=== PATIENT | female | born 1965 | race American Indian/Alaskan Native ===

== ENCOUNTER 2016-06-18 08:15 | Emergency (ER) | payer SELFPAY ==
--- NOTE | 2016-06-18 12:07 | Emergency Department Report ---
ED Lower Extremity HPI - General Chief Complaint: Extremity Injury, Lower Stated Complaint: LT TOE PAIN Time Seen by Provider: 06/18/16 11:47 Source: patient Mode of arrival: Ambulatory Limitations: No Limitations - History of Present Illness Initial Comments: 50-year-old female past medical history gastric ulcer, GERD, bunionectomy presents with complaint of pain to the left third and fifth toes status post accidentally kicking a door frame with foot while mopping. Patient states this happened 2 days ago, states that her toes are very painful. States she previously had bunion correction surgery. Denies any lacerations, able to walk on the foot but uncomfortable due to toe pain denies any other injuries. Patient states she has multiple adequate allergies MD Complaint: ankle injury, foot injury Onset/Timin -: days(s) Injury: Toes: Left Type of Injury: blunt Place: home Severity: moderate Severity scale (0 -10): 6 Improves With: immobilization Worsens With: movement Context: direct blow - Related Data Allergies Allergy/AdvReac Type Severity Reaction Status Date / Time ibuprofen Allergy Bleeding Verified 06/18/16 08:35 acetaminophen [From Vicodin] AdvReac Vomiting Verified 06/18/16 08:34 hydrocodone bitartrate AdvReac Vomiting Verified 06/18/16 08:34 [From Vicodin] ED Review of Systems ROS: Stated complaint: LT TOE PAIN Other details as noted in HPI ED Past Medical Hx - Past Medical History Previous Medical History?: No - Surgical History Past Surgical History?: Yes Additional Surgical History: bilateral feet, abdominal hernias - Social History Smoking Status: Current Some Day Smoker Substance Use Type: Alcohol ED Physical Exam - General Limitations: No Limitations General appearance: alert, in no apparent distress - Head Head exam: Present: atraumatic, normocephalic - Eye Eye exam: Present: normal appearance, PERRL, EOMI - ENT ENT exam: Present: mucous membranes moist - Neck Neck exam: Present: normal inspection - Respiratory Respiratory exam: Present: normal lung sounds bilaterally. Absent: respiratory distress - Cardiovascular Cardiovascular Exam: Present: regular rate, normal rhythm. Absent: systolic murmur, diastolic murmur, rubs, gallop - GI/Abdominal GI/Abdominal exam: Present: soft, normal bowel sounds - Extremities Exam Extremities exam: Present: normal inspection - Expanded Lower Extremity Exam Left Hip exam: Present: normal inspection, full ROM Upper Leg exam: Present: normal inspection, full ROM Knee exam: Present: normal inspection, full ROM Lower Leg exam: Present: normal inspection, full ROM Ankle exam: Present: normal inspection, full ROM Foot/Toe exam: Present: tenderness (patient has some tenderness at tip of third and fifth digits no pain and metatarsal region) - Back Exam Back exam: Present: normal inspection - Neurological Exam Neurological exam: Present: alert, oriented X3 - Psychiatric Psychiatric exam: Present: normal affect, normal mood - Skin Skin exam: Present: warm, dry, intact, normal color. Absent: rash ED Course Vital Signs 06/18/16 08:27 Temperature 98.5 F Pulse Rate 67 Respiratory 18 Rate Blood Pressure 122/80 O2 Sat by Pulse 100 Oximetry ED Lower Extremity MDM - Medical Decision Making A/P: toe contusion 1-orthopedic shoe, podiatry follow-up 2-x-ray reviewed with Dr. Faustin no signs of acute fracture 3- Tylenol when necessary for pain, RICE Critical care attestation.: If time is entered above; I have spent that time in minutes in the direct care of this critically ill patient, excluding procedure time. ED Disposition Clinical Impression: Contusion, toes Qualifiers: Encounter type: sequela Toe: lesser toe Damage to nail status: without damage Laterality: left Qualified Code(s): S90.122S - Contusion of left lesser toe(s) without damage to nail, sequela Disposition: DISCHARGED TO HOME OR SELFCARE Is pt being admited?: No Does the pt Need Aspirin: No Condition: Stable Instructions: Foot Contusion (ED), RICE Therapy (ED) Referrals: NICO GUERRERO DPM [Staff Physician] - 3-5 Days Forms: Work/School Release Form(ED) Time of Disposition: 13:05
[2016-06-18 13:28] VITALS: BP 120/80
--- NOTE | 2016-06-19 08:47 | XRay Report ---
Left third fourth and fifth toes. Findings: There no acute fractures or dislocations. No fracture deformity on the distal fifth metatarsal is seen. A single orthopedic screw is seen at the head of the first metatarsal. Impression: No acute findings.
== END 2016-06-18 13:24 | disposition home or self-care (01) ==
LOC: ED 08:15
DX: S90.122S Contusion of left lesser toe(s) without damage to nail, sequela (principal); F17.200 Nicotine dependence, unspecified, uncomplicated; K21.9 Gastro-esophageal reflux disease without esophagitis
CPT/HCPCS: 99283

== ENCOUNTER 2016-09-23 18:10 | Emergency (ER) | payer SELFPAY ==
[2016-09-23 19:06] LABS: Basophils % (Auto) 1.2 % (0.0-1.8); Eosinophils % (Auto) 4.9 % (0.0-4.3); Hematocrit 38.4 % (30.3-42.9); Hemoglobin 12.8 gm/dl (10.1-14.3); Mean Corpuscular HGB Conc 33 % (30-34); Mean Corpuscular Hemoglobin 31 pg (28-32); Mean Corpuscular Volume 93 fl (79-97); Platelet Count 305 K/mm3 (140-440); Red Blood Count 4.13 M/mm3 (3.65-5.03); Red Cell Distribution Width 13.8 % (13.2-15.2)
--- NOTE | 2016-09-23 19:12 | XRay Report ---
FINAL REPORT EXAM: XR CHEST ROUTINE 2V HISTORY: chest pain TECHNIQUE: PA and lateral chest radiographs PRIORS: None. FINDINGS: No focal consolidations are seen in the lungs and there are no pleural effusions.The cardiomediastinal silhouette is within normal limits for size and contour. No acute osseous abnormality is identified. IMPRESSION: 1. No definite radiographic evidence of acute cardiopulmonary disease.
[2016-09-23 19:15] LABS: Anion Gap 14 mmol/L; BUN/Creatinine Ratio 5.55; Blood Urea Nitrogen 5 mg/dL (7-17); Calcium 9.5 mg/dL (8.4-10.2); Carbon Dioxide 29 mmol/L (22-30); Chloride 102.4 mmol/L (98-107); Glucose 76 mg/dL (65-100); Potassium 4.4 mmol/L (3.6-5.0); Sodium 141 mmol/L (137-145)
--- NOTE | 2016-09-24 03:38 | Emergency Department Report ---
HPI - General Chief Complaint: Chest Pain Time Seen by Provider: 09/24/16 03:20 - HPI HPI: Room 17 The patient is a 50-year-old female presenting with a chief complaint of chest pain. The patient states her symptoms began today at approximately 15:30 of left-sided chest pain that was sharp and intermittent in nature. The patient states she got short of breath diaphoresis and nausea without vomiting. Patient states she took a Ramos aspirin and it helped. Patient states her chest pain has been intermittent. Patient currently denies chest pain. Patient states she's never had a stress test or cardiac catheterization Location: Left chest Duration: Intermittent since 15:30 Quality: Sharp Severity: Currently 0/10 Modifying factors: [see above] Context: [see above] Mode of transportation: Unknown ED Past Medical Hx - Past Medical History Previous Medical History?: Yes Hx Asthma: Yes - Surgical History Past Surgical History?: Yes Additional Surgical History: bilateral feet, abdominal hernias - Family History Family history: no significant - Social History Smoking Status: Current Some Day Smoker Substance Use Type: None (denies illicit drug use), Alcohol (occasional) - Medications Home Medications: Home Medications Medication Instructions Recorded Confirmed Last Taken Type Ondansetron [Zofran Odt] 4 mg PO Q8H PRN #20 tab.rapdis 06/18/16 Unknown Rx traMADol [Ultram 50 MG tab] 50 mg PO Q6HR PRN #10 tablet 06/18/16 Unknown Rx ED Review of Systems ROS: Stated complaint: LT FOOT PAIN/LUMP RT ARM/CHEST PAIN Other details as noted in HPI Comment: All other systems reviewed and negative Constitutional: diaphoresis Eyes: denies: eye pain, eye discharge, vision change ENT: denies: ear pain, throat pain Respiratory: shortness of breath Cardiovascular: chest pain Endocrine: no symptoms reported Gastrointestinal: nausea. denies: vomiting Genitourinary: denies: urgency, dysuria, discharge Musculoskeletal: denies: back pain, joint swelling, arthralgia Skin: denies: rash, lesions Neurological: denies: headache, weakness, paresthesias Psychiatric: denies: anxiety, depression Hematological/Lymphatic: denies: easy bleeding, easy bruising Physical Exam - Physical Exam Vital Signs: Vital Signs 09/23/16 09/24/16 18:38 00:21 Temperature 98.5 F Pulse Rate 77 67 Respiratory 20 14 Rate Blood Pressure 119/85 140/98 O2 Sat by Pulse 100 100 Oximetry Physical Exam: GENERAL: The patient is well-developed well-nourished female lying on stretcher not appearing to be in acute distress. [] HEENT: Normocephalic. Atraumatic. Extraocular motions are intact. Patient has moist mucous membranes. NECK: Supple. Trachea midline CHEST/LUNGS: Clear to auscultation. There is no respiratory distress noted. HEART/CARDIOVASCULAR: Regular. There is no tachycardia. There is no gallop rub or murmur. ABDOMEN: Abdomen is soft, nontender. Patient has normal bowel sounds. There is no abdominal distention. SKIN: There is no rash. There is no edema. There is no diaphoresis. NEURO: The patient is awake, alert, and oriented. The patient is cooperative. The patient has normal speech MUSCULOSKELETAL: There is no evidence of acute injury. ED Course Vital Signs 09/23/16 09/24/16 18:38 00:21 Temperature 98.5 F Pulse Rate 77 67 Respiratory 20 14 Rate Blood Pressure 119/85 140/98 O2 Sat by Pulse 100 100 Oximetry ED Medical Decision Making - Lab Data Result diagrams: 09/23/16 18:44 09/23/16 18:44 Laboratory Tests 09/23/16 09/23/16 09/23/16 18:44 18:44 21:24 WBC 4.0 L RBC 4.13 Hgb 12.8 Hct 38.4 MCV 93 MCH 31 MCHC 33 RDW 13.8 Plt Count 305 Lymph % (Auto) 45.3 H [place] % (Auto) 8.2 H Eos % (Auto) 4.9 H Baso % (Auto) 1.2 Lymph # 1.8 [place] # 0.3 Eos # 0.2 Baso # 0.0 Seg Neutrophils % 40.4 Seg Neutrophils # 1.6 L Sodium 141 Potassium 4.4 Chloride 102.4 Carbon Dioxide 29 Anion Gap 14 BUN 5 L Creatinine 0.9 Estimated GFR > 60 BUN/Creatinine Ratio 5.55 Glucose 76 Calcium 9.5 Troponin T < 0.010 < 0.010 09/24/16 00:22 WBC RBC Hgb Hct MCV MCH MCHC RDW Plt Count Lymph % (Auto) [place] % (Auto) Eos % (Auto) Baso % (Auto) Lymph # [place] # Eos # Baso # Seg Neutrophils % Seg Neutrophils # Sodium Potassium Chloride Carbon Dioxide Anion Gap BUN Creatinine Estimated GFR BUN/Creatinine Ratio Glucose Calcium Troponin T < 0.010 - EKG Data -: EKG Interpreted by Me EKG shows normal: sinus rhythm Rate: normal - EKG Data When compared to previous EKG there are: previous EKG unavailable Interpretation: other (no ischemic changes seen) - Radiology Data Radiology results: image reviewed (chest x-ray) interpreted by me: Chest x-ray-no focal infiltrates, no pneumothorax - Medical Decision Making I discussed with the patient at length my concern for ACS as a potential etiology of her chest pain. I explained to her normal EKG and labs does not exclude this possibility. Patient verbalized understanding. Patient understands potential increased morbidity and/or mortality from undiagnosed cardiac disease should she leave the hospital against medical advise. Patient requested to return to the ED immediately if she changes her mind Critical care attestation.: If time is entered above; I have spent that time in minutes in the direct care of this critically ill patient, excluding procedure time. ED Disposition Clinical Impression: Chest pain Disposition: 07 LEFT AGAINST MED ADVICE Is pt being admited?: No Does the pt Need Aspirin: No Condition: Undetermined Instructions: Chest Pain (ED) Referrals: PRIMARY CARE, [Primary Care Provider] - 3-5 Days Time of Disposition: 03:39 (patient leaving AMA)
[2016-09-24 03:44] VITALS: BP 136/87
== END 2016-09-24 03:42 | disposition left against medical advice (07) ==
LOC: ED 18:10
DX: R07.9 Chest pain, unspecified (principal); J45.909 Unspecified asthma, uncomplicated; F17.200 Nicotine dependence, unspecified, uncomplicated; Z88.6 Allergy status to analgesic agent; Z88.8 Allergy status to other drugs, medicaments and biological substances
CPT/HCPCS: 36415; 71020; 80048; 84484; 85025; 93005; 93010

== ENCOUNTER 2016-12-29 12:27 | Emergency (ER) | payer SELFPAY ==
[2016-12-29 13:49] LABS: Basophils % (Auto) 0.5 % (0.0-1.8); Eosinophils % (Auto) 0.7 % (0.0-4.3); Hemoglobin 15.8 gm/dl (10.1-14.3); Mean Corpuscular HGB Conc 34 % (30-34); Mean Corpuscular Hemoglobin 31 pg (28-32); Mean Corpuscular Volume 92 fl (79-97); Platelet Count 396 K/mm3 (140-440); Red Blood Count 5.02 M/mm3 (3.65-5.03); Red Cell Distribution Width 13.4 % (13.2-15.2); White Blood Count 8.6 K/mm3 (4.5-11.0)
[2016-12-29 14:10] LABS: Alanine Aminotransferase 8 units/L (7-56); Albumin 5.1 g/dL (3.9-5); Albumin/Globulin Ratio 1.6 %; Alkaline Phosphatase 64 units/L (35-129); Anion Gap 25 mmol/L; BUN/Creatinine Ratio 18; Blood Urea Nitrogen 11 mg/dL (7-17); Calcium 10.3 mg/dL (8.4-10.2); Carbon Dioxide 24 mmol/L (22-30); Chloride 93.7 mmol/L (98-107); Glucose 86 mg/dL (65-100); Lipase 14 units/L (13-60); Potassium 4.6 mmol/L (3.6-5.0); Sodium 138 mmol/L (137-145); Total Protein 8.2 g/dL (6.3-8.2)
[2016-12-29 14:51] LABS: Bacteria,Urine 1+ /HPF (Negative); Bilirubin,Urine NEG (Negative); Blood,Urine MOD (Negative); Ketones,Urine 80 mg/dL (Negative); Leukocyte Esterase,Urine NEG (Negative); Mucus,Urine 3+ /HPF; Nitrite,Urine NEG (Negative)
[2016-12-29] MEDS ORDERED: ZOFRAN IV ONE (16:49)
[2016-12-29] MEDS ORDERED: DILAUDID IV ONE (16:49)
[2016-12-29] MEDS ORDERED: D5NS 1,000 ML IV SCH (17:00)
[2016-12-29] MEDS ORDERED: NACL ONE (17:06)
--- NOTE | 2016-12-29 18:12 | Emergency Department Report ---
ED Abdominal Pain HPI - General Chief Complaint: Abdominal Pain Stated Complaint: RIGHT SIDE ABDOMINAL PAIN Time Seen by Provider: 12/29/16 16:36 Source: patient Mode of arrival: Ambulatory Limitations: No Limitations - History of Present Illness Initial Comments: 51-year-old female with a past medical history of asthma and previous gallstones that spontaneously resolved and ventral abdominal hernia surgery with mesh placement presents to the hospital with complaints of abdominal pain, nausea and vomiting. Patient has had right lower quadrant pain 2 weeks. Pain is sharp, deep, intermittent, every denies tinnitus. With palpation. No relieving factors. The Patient Has Had Nausea, Vomiting with Poor by Mouth Tolerance. No Bowel Movement in 3 Days. No complaints of fever. Severity scale (0 -10): 10 - Related Data Previous Rx's Medication Instructions Recorded Last Taken Type Ondansetron [Zofran Odt] 4 mg PO Q8H PRN #20 tab.rapdis 06/18/16 Unknown Rx traMADol [Ultram 50 MG tab] 50 mg PO Q6HR PRN #10 tablet 06/18/16 Unknown Rx Ondansetron [Zofran Odt] 4 mg PO Q8HR PRN #20 tab.rapdis 12/29/16 Unknown Rx oxyCODONE /ACETAMINOPHEN [Percocet 1 tab PO Q6HR PRN #15 tablet 12/29/16 Unknown Rx 5/325] Allergies Allergy/AdvReac Type Severity Reaction Status Date / Time ibuprofen Allergy Bleeding Verified 12/29/16 13:24 acetaminophen [From Vicodin] AdvReac Vomiting Verified 12/29/16 13:24 hydrocodone bitartrate AdvReac Vomiting Verified 12/29/16 13:24 [From Vicodin] ED Review of Systems ROS: Stated complaint: RIGHT SIDE ABDOMINAL PAIN Other details as noted in HPI Comment: All other systems reviewed and negative Other: Constitutional: No fevers chills Eyes: No eye pain visual changes ENT: No ear pain or throat pain Neck: Denies pain Respiratory: Denies cough wheezing shortness of breath Cardiovascular: Denies chest pain, palpitations, syncope GI: As per HPI : Denies dysuria Musculoskeletal: Denies back pain, joint swelling Skin: Denies rash, lesions, erythema Neurologic: Denies headache, numbness, weakness Psychiatric: Denies suicidal ideation, hallucinations ED Past Medical Hx - Past Medical History Previous Medical History?: Yes Hx Asthma: Yes Additional medical history: Gall bladder issue, PUD - Surgical History Past Surgical History?: Yes Additional Surgical History: bilateral feet, abdominal hernias - Social History Smoking Status: Former Smoker Substance Use Type: None - Medications Home Medications: Home Medications Medication Instructions Recorded Confirmed Last Taken Type Ondansetron [Zofran Odt] 4 mg PO Q8H PRN #20 tab.rapdis 06/18/16 Unknown Rx traMADol [Ultram 50 MG tab] 50 mg PO Q6HR PRN #10 tablet 06/18/16 Unknown Rx Ondansetron [Zofran Odt] 4 mg PO Q8HR PRN #20 tab.rapdis 12/29/16 Unknown Rx oxyCODONE /ACETAMINOPHEN [Percocet 1 tab PO Q6HR PRN #15 tablet 12/29/16 Unknown Rx 5/325] ED Physical Exam - General Limitations: No Limitations - Other Other exam information: General: No limitations, patient is alert in no acute distress Head exam: Atraumatic, normocephalic Eyes exam: Normal appearance, ENT: Moist mucous membrane, normal oropharynx Neck exam: Normal inspection, full range of motion, no meningismus nontender Respiratory exam: Clear to auscultation bilateral, no wheezes, rales, crackles Cardiovascular: Normal rate and rhythm, normal heart sounds Abdomen: Soft, nondistended, generalized tenderness greatest in the right upper quadrant and right lower quadrant without rebound or guarding Extremity: Full range of motion normal inspection no deformity Back: Normal Inspection, full range of motion, no tenderness Neurologic: Alert, oriented x3, cranial nerves intact, no motor or sensory deficit Psychiatric: normal affect, normal mood Skin: Warm, dry, intact ED Course Vital Signs 12/29/16 12/29/16 12/29/16 13:12 14:43 14:45 Temperature 99.2 F Pulse Rate 77 Respiratory 18 Rate Blood Pressure 124/92 134/81 139/90 Blood Pressure [Right] O2 Sat by Pulse 99 Oximetry 12/29/16 12/29/16 12/29/16 14:48 15:00 15:06 Temperature 98.5 F Pulse Rate 75 Respiratory 16 20 Rate Blood Pressure 128/82 Blood Pressure 139/90 [Right] O2 Sat by Pulse 99 98 Oximetry 12/29/16 12/29/16 12/29/16 15:15 15:30 15:46 Temperature Pulse Rate Respiratory Rate Blood Pressure 130/87 114/94 142/91 Blood Pressure [Right] O2 Sat by Pulse 100 99 99 Oximetry 12/29/16 12/29/16 12/29/16 16:00 16:15 16:30 Temperature Pulse Rate Respiratory Rate Blood Pressure 135/84 129/81 134/91 Blood Pressure [Right] O2 Sat by Pulse 99 99 98 Oximetry 12/29/16 12/29/16 12/29/16 16:45 17:00 17:15 Temperature Pulse Rate Respiratory Rate Blood Pressure 131/90 137/85 131/82 Blood Pressure [Right] O2 Sat by Pulse 99 99 Oximetry 12/29/16 12/29/16 12/29/16 17:30 18:13 18:15 Temperature Pulse Rate Respiratory Rate Blood Pressure 119/79 119/79 119/73 Blood Pressure [Right] O2 Sat by Pulse 99 100 100 Oximetry 12/29/16 12/29/16 12/29/16 18:30 18:45 19:00 Temperature Pulse Rate Respiratory Rate Blood Pressure 135/76 118/73 112/76 Blood Pressure [Right] O2 Sat by Pulse 99 98 99 Oximetry 12/29/16 12/29/16 19:15 19:31 Temperature Pulse Rate 65 Respiratory 16 Rate Blood Pressure 119/75 Blood Pressure 119/75 [Right] O2 Sat by Pulse 99 99 Oximetry ED Medical Decision Making - Lab Data Result diagrams: 12/29/16 13:25 12/29/16 13:25 Lab Results 12/29/16 12/29/16 12/29/16 Range/Units 13:25 13:25 14:06 WBC 8.6 (4.5-11.0) K/mm3 RBC 5.02 (3.65-5.03) M/mm3 Hgb 15.8 H (10.1-14.3) gm/dl Hct 46.0 H (30.3-42.9) % MCV 92 (79-97) fl MCH 31 (28-32) pg MCHC 34 (30-34) % RDW 13.4 (13.2-15.2) % Plt Count 396 (140-440) K/mm3 Lymph % (Auto) 20.4 (13.4-35.0) % [place] % (Auto) 8.5 H (0.0-7.3) % Eos % (Auto) 0.7 (0.0-4.3) % Baso % (Auto) 0.5 (0.0-1.8) % Lymph # 1.8 (1.2-5.4) K/mm3 [place] # 0.7 (0.0-0.8) K/mm3 Eos # 0.1 (0.0-0.4) K/mm3 Baso # 0.0 (0.0-0.1) K/mm3 Seg Neutrophils % 69.9 (40.0-70.0) % Seg Neutrophils # 6.0 (1.8-7.7) K/mm3 Sodium 138 (137-145) mmol/L Potassium 4.6 (3.6-5.0) mmol/L Chloride 93.7 L (98-107) mmol/L Carbon Dioxide 24 (22-30) mmol/L Anion Gap 25 mmol/L BUN 11 (7-17) mg/dL Creatinine 0.6 L (0.7-1.2) mg/dL Estimated GFR > 60 ml/min BUN/Creatinine Ratio 18 % Glucose 86 (65-100) mg/dL Calcium 10.3 H (8.4-10.2) mg/dL Total Bilirubin 2.70 H (0.1-1.2) mg/dL AST 14 (5-40) units/L ALT 8 (7-56) units/L Alkaline Phosphatase 64 (35-129) units/L Total Protein 8.2 (6.3-8.2) g/dL Albumin 5.1 H (3.9-5) g/dL Albumin/Globulin Ratio 1.6 % Lipase 14 (13-60) units/L Urine Color [place] (Yellow) Urine Turbidity Clear (Clear) Urine pH 5.0 (5.0-7.0) Ur Specific [place] 1.033 H (1.003-1.030) Urine Protein 30 mg/dl (Negative) mg/dL Urine Glucose (UA) Neg (Negative) mg/dL Urine Ketones 80 (Negative) mg/dL Urine Blood Mod (Negative) Urine Nitrite Neg (Negative) Urine Bilirubin Neg (Negative) Urine Urobilinogen 2.0 (<2.0) mg/dL Ur Leukocyte Esterase Neg (Negative) Urine WBC (Auto) 3.0 (0.0-6.0) /HPF Urine RBC (Auto) 7.0 (0.0-6.0) /HPF U Epithel Cells (Auto) 20.0 H (0-13.0) /HPF Urine Bacteria (Auto) 1+ (Negative) /HPF Urine Mucus 3+ /HPF - Radiology Data Radiology results: report reviewed (CT of the abd and pelvis IV contrast: No acute findings) - Medical Decision Making Patient feeling much better with each treatment including Dilaudid, Zofran, and D5NS. Tolerating by mouth intake. Informed of elevated bilirubin but normal CT. Follow-up encouraged. Symptomatic treatment will be provided - Differential Diagnosis obstruction, cholelithiasis/cystitis, appendicitis, ovarian, UTI, renal col Critical Care Time: No Critical care attestation.: If time is entered above; I have spent that time in minutes in the direct care of this critically ill patient, excluding procedure time. ED Disposition Clinical Impression: Abdominal pain, Vomiting, Dehydration, Elevated bilirubin Disposition: TO HOME OR SELFCARE Is pt being admited?: No Does the pt Need Aspirin: No Condition: Stable Instructions: Abdominal Pain (ED), Acute Nausea and Vomiting (ED) Additional Instructions: Take the medication as needed. Follow with the doctors and clinics provided. Return if symptoms worsen Prescriptions: Ondansetron [Zofran Odt] 4 mg PO Q8HR PRN #20 tab.rapdis PRN Reason: Nausea And Vomiting oxyCODONE /ACETAMINOPHEN [Percocet 5/325] 1 tab PO Q6HR PRN #15 tablet PRN Reason: Pain Referrals: ENID Schwarz [Other] - 3-5 Days (dentist office ) LINN LINCOLN MD [Staff Physician] - 3-5 Days (GI doctor ) [facility] [Provider Group] - 3-5 Days (Primary care doctor) [facility] [Outside] - 3-5 Days RAMONE JIMENEZ MD [Staff Physician] - 3-5 Days Time of Disposition: 20:10
--- NOTE | 2016-12-29 18:45 | Cat Scan Report ---
FINAL REPORT PROCEDURE: CT abdomen and pelvis with contrast. TECHNIQUE: Computerized axial tomography of the abdomen and pelvis was performed after the IV injection of iodinated nonionic contrast. HISTORY: Right-sided abdominal pain, nausea and vomiting. COMPARISON: No prior studies are available for comparison. FINDINGS: The lung bases are clear. There are no pleural effusions. The heart size is normal. The liver, pancreas and spleen appear normal. The gallbladder is present. The adrenal glands are not enlarged. Both kidneys appear normal in size and configuration. There is a small cyst in the right kidney. The abdominal aorta has a normal caliber. There is no retroperitoneal adenopathy. The unopacified gastrointestinal tract is unremarkable. A normal appendix is visible. The bladder, uterus and adnexal regions appear normal. The regional skeleton appears intact. IMPRESSION: No evidence of acute disease in the abdomen or pelvis.
[2016-12-29 22:20] VITALS: BP 132/77
== END 2016-12-29 20:26 | disposition home or self-care (01) ==
LOC: ED 12:27
DX: R17 Unspecified jaundice (principal); E86.0 Dehydration; Z87.891 Personal history of nicotine dependence
CPT/HCPCS: 36415; 74177; 80053; 81001; 83690; 85025; 96361; 96365; 96375; 99284; J1170; J2405; J7042; Q9967